=== PATIENT | male | born 1995 | race Caucasian/White ===

== ENCOUNTER 2019-05-23 11:57 | Emergency (ER) | payer OTHER, BC ==
[2019-05-23 12:08] VITALS: BP 136/64
[2019-05-23] MEDS ORDERED: ACETAMINOPHEN 325 MG TABLET PO ONE (13:02)
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
== END 2019-05-23 14:22 | disposition home or self-care (01) ==
LOC: ER 11:57
DX: S09.90XA Unspecified injury of head, initial encounter (principal); S09.92XA Unspecified injury of nose, initial encounter; M79.641 Pain in right hand; R51 Headache; M54.2 Cervicalgia; M54.9 Dorsalgia, unspecified; V48.5XXA Car driver injured in noncollision transport accident in traffic accident, initial encounter
CPT/HCPCS: 70450; 70486; 99284